=== PATIENT | female | born 1990 | race Caucasian/White ===

== ENCOUNTER → 2020-03-17 | Outpatient (CLI) | payer OTHER ==
[~2020-03-17] MED LIST: BENTYL PO; HYDMOR2 PO; KETO10 PO; OXYACE5T PO; PROM25 PO; RXHYDMOR2 PO; RXONDA4ODT MM; TAMS.4ER PO
== END | disposition home or self-care (01) ==
LOC: LAB 15:53 → LAB SHORT 15:53
PROVIDERS: Obstetrics & Gynecology
DX: O28.8 Other abnormal findings on antenatal screening of mother (principal)
CPT/HCPCS: 87086; 87147; G0123

== ENCOUNTER → 2020-04-18 | Outpatient (CLI) | payer OTHER | LOC: LAB SHORT 16:53 → LAB EV 16:53 | DX: O26.92 Pregnancy related conditions, unspecified, second trimester (principal); R82.90 Unspecified abnormal findings in urine | CPT/HCPCS: 87086 ==

== ENCOUNTER 2020-10-16 08:06 | Inpatient (IN) | payer OTHER ==
[~2020-10-16] VITALS: Ht 157.5 cm; Wt 86.0 kg
[2020-10-16] MEDS ORDERED: PRENATAL TABLE1 EAC2 PO (08:45)
[2020-10-16 08:54] LABS: BASOPHILS ABSOLUTE AUTO 0.04 K/mm3 (0.00-0.23); BASOPHILS PERCENT AUTO 0 % (0-2); EOSINOPHILS ABSOLUTE AUTO 0.13 K/mm3 (0.00-0.68); EOSINOPHILS PERCENT AUTO 1 % (0-6); Hematocrit 38.8 % (33.0-51.0); Hemoglobin 13.3 g/dL (11.5-16.0); IMMATURE GRAN ABSOLUTE AUTO 0.06 K/mm3 (0.00-0.10); IMMATURE GRAN PERCENT AUTO 1 % (0-1); LYMPHOCYTES ABSOLUTE AUTO 2.48 K/mm3 (0.84-5.20); LYMPHOCYTES PERCENT AUTO 25 % (21-46); MONOCYTES PERCENT AUTO 6 % (4-13); Mean Corpuscular HGB 30.3 pg (26.0-34.0); Mean Corpuscular HGB Conc 34.3 g/dL (31.5-36.5); Mean Corpuscular Volume 88 fL (80-100); Mean Platelet Volume 11.5 fL (9.1-12.4); NEUTROPHILS ABSOLUTE AUTO 6.68 K/mm3 (1.96-9.15); NEUTROPHILS PERCENT AUTO 67 % (41-73); Platelet Count 190 K/mm3 (150-400); RDW Coefficient Variation 14.3 % (11.7-14.2); RDW Standard Deviation 46.1 fL (35.1-46.3); Red Blood Cell Count 4.39 M/mm3 (3.80-5.20); White Blood Cell Count 9.99 K/mm3 (4.00-11.30)
[2020-10-17 05:26] LABS: BASOPHILS ABSOLUTE AUTO 0.04 K/mm3 (0.00-0.23); BASOPHILS PERCENT AUTO 0 % (0-2); EOSINOPHILS ABSOLUTE AUTO 0.08 K/mm3 (0.00-0.68); EOSINOPHILS PERCENT AUTO 1 % (0-6); Hematocrit 32.8 % (33.0-51.0); IMMATURE GRAN ABSOLUTE AUTO 0.08 K/mm3 (0.00-0.10); IMMATURE GRAN PERCENT AUTO 1 % (0-1); LYMPHOCYTES ABSOLUTE AUTO 2.76 K/mm3 (0.84-5.20); LYMPHOCYTES PERCENT AUTO 19 % (21-46); MONOCYTES ABSOLUTE AUTO 1.08 K/mm3 (0.16-1.47); MONOCYTES PERCENT AUTO 7 % (4-13); Mean Corpuscular HGB 30.2 pg (26.0-34.0); Mean Corpuscular HGB Conc 33.5 g/dL (31.5-36.5); Mean Corpuscular Volume 90 fL (80-100); Mean Platelet Volume 11.4 fL (9.1-12.4); NEUTROPHILS ABSOLUTE AUTO 10.55 K/mm3 (1.96-9.15); NEUTROPHILS PERCENT AUTO 72 % (41-73); Platelet Count 150 K/mm3 (150-400); RDW Coefficient Variation 14.5 % (11.7-14.2); Red Blood Cell Count 3.64 M/mm3 (3.80-5.20); White Blood Cell Count 14.59 K/mm3 (4.00-11.30)
--- NOTE | 2020-10-17 14:03 | NUR ---
RN/LC ROUNDED TO HELP W/ . INSTRUCT/DEMO WIDENING LATCH, CORRECT POSITIONING, AND NIPPLE SHAPE AFTER FEEDS. PT'S NIPPLE ARE SLIGHTLY ERECT, TISSUE IS FIRM. INSTRUCT/DEMO SHIELD USE AND WEANING. INSTRUCTED PT TO ATTEMPT TO LATCH NB W/O SHIELD W/ EACH FEED, IF NB DOES NOT LATCH TO USE THE SHIELD, IF A MAJORITY OF FEEDS ARE DONE USING A SHIELD, PT IS INSTRUCTED TO PUMP FOR 10-15 MINUTES FOR ADDITIONAL STIMULATION TO HELP BRING IN MILK SUPPLY.
--- NOTE | 2020-10-17 18:24 | NUR ---
LATE NOTE ENTRY: DISCHARGE INSTRUCTIONS, WRITTEN VERNAL, GIVEN TO PT AND Genna ALEXANDER. ANSWERED ALL QUESTIONS AND CONCERNS. FOLLOW UP APPOINTMENT. IV DISCONTINUED. ALL PERSONAL BELONGINGS RETURNED. PT IS DISCHARGED, DRIVEN HOME BY Genna ALEXANDER AT 1740.
--- NOTE | 2020-10-19 09:05 | NUR ---
LATE EDIT COMPLETED IN LABOR AND DELIVERY SUMMARY. NB DETAILS (WT, HT, LENGTH, HEAD, CHEST MEASUREMENTS).
== END 2020-10-17 17:41 | disposition home or self-care (01) | DRG 807 ==
LOC: OBS 08:06 → BC 08:06 → OBS 08:17 → BC 08:18
PROVIDERS: ADMIT Obstetrics & Gynecology
PROC: 10E0XZZ Delivery of Products of Conception, External Approach (ICD-10-PCS; principal; 2020-10-16)
PROC: 0HQ9XZZ Repair Perineum Skin, External Approach (ICD-10-PCS; 2020-10-16)
DX: O70.0 First degree perineal laceration during delivery (principal); Z37.0 Single live birth; Z3A.40 40 weeks gestation of pregnancy; Z20.822 Contact with and (suspected) exposure to COVID-19
CPT/HCPCS: 36415; 51702; 85025; 85460; 86850; 86900; 86901; 96372; A9270; J0290; J1885; J2001; J2210; J2405; J2791; J3010; J7120

== ENCOUNTER 2021-01-27 02:53 | Emergency (ER) | payer OTHER ==
[~2021-01-27] VITALS: Ht 157.5 cm; Wt 86.2 kg
[~2021-01-27 02:53] MED LIST changes: +PRENATAL TABLE1 EAC2 PO
[2021-01-27 03:34] LABS: Source, Urine Clean Catch
[2021-01-27 03:37] LABS: BASOPHILS ABSOLUTE AUTO 0.06 K/mm3 (0.00-0.23); BASOPHILS PERCENT AUTO 1 % (0-2); EOSINOPHILS ABSOLUTE AUTO 0.16 K/mm3 (0.00-0.68); EOSINOPHILS PERCENT AUTO 2 % (0-6); Hematocrit 41.7 % (33.0-51.0); Hemoglobin 13.8 g/dL (11.5-16.0); IMMATURE GRAN ABSOLUTE AUTO 0.05 K/mm3 (0.00-0.10); IMMATURE GRAN PERCENT AUTO 1 % (0-1); LYMPHOCYTES ABSOLUTE AUTO 2.16 K/mm3 (0.84-5.20); LYMPHOCYTES PERCENT AUTO 25 % (21-46); MONOCYTES ABSOLUTE AUTO 0.92 K/mm3 (0.16-1.47); MONOCYTES PERCENT AUTO 11 % (4-13); Mean Corpuscular HGB 28.3 pg (26.0-34.0); Mean Corpuscular HGB Conc 33.1 g/dL (31.5-36.5); Mean Corpuscular Volume 86 fL (80-100); Mean Platelet Volume 10.5 fL (9.1-12.4); NEUTROPHILS ABSOLUTE AUTO 5.17 K/mm3 (1.96-9.15); NEUTROPHILS PERCENT AUTO 61 % (41-73); Platelet Count 247 K/mm3 (150-400); RDW Standard Deviation 39.6 fL (35.1-46.3); Red Blood Cell Count 4.88 M/mm3 (3.80-5.20); White Blood Cell Count 8.52 K/mm3 (4.00-11.30)
[2021-01-27 03:38] LABS: Bilirubin, Urine Neg (Neg); Blood, Urine Neg (Neg); Glucose Qualitative, Urine Neg (Neg); Ketones, Urine Neg (Neg); Leukocyte Esterase, Urine Neg (Neg); Nitrite, Urine Neg (Neg); Protein, Urine 1+ (Neg); Urobilinogen, Urine NORM (Normal)
[2021-01-27] MEDS ORDERED: PROG100 PO (03:40)
[2021-01-27 03:42] LABS: Appearance, Urine Clear (Clear); Color, Urine Yellow (P-Yellow)
[2021-01-27 03:55] LABS: Alanine Aminotransfer (ALT/SGP 34 U/L (12-78); Albumin, Blood 3.5 g/dL (3.4-5.0); Albumin/Globulin Ratio 0.9 (0.8-1.8); Alk Phos 86 U/L (50-136); Anion Gap 4 mmol/L (6-16); Aspartate Aminotrans (AST/SGOT 18 U/L (12-37); Bilirubin, Total 0.4 mg/dL (0.1-1.0); Blood Urea Nitrogen 13 mg/dL (8-24); Bun/Creatinine Ratio 19.4 (12.0-20.0); CO2, Blood 25 mmol/L (21-32); Calcium, Blood 8.6 mg/dL (8.5-10.1); Chloride, Blood 110 mmol/L (98-108); Creatinine, Blood 0.67 mg/dL (0.40-1.00); Glomerular Filtration Rate >60 (60-); Glucose, Blood 110 mg/dL (70-99); Potassium, Blood 3.4 mmol/L (3.5-5.5); Sodium, Blood 139 mmol/L (136-145); Total Protein, Blood 7.5 g/dL (6.4-8.2)
== END 2021-01-27 05:00 | disposition home or self-care (01) ==
LOC: ER 02:53
PROVIDERS: Emergency Medicine
DX: K80.20 Calculus of gallbladder without cholecystitis without obstruction (principal); I10 Essential (primary) hypertension; E11.9 Type 2 diabetes mellitus without complications; K21.9 Gastro-esophageal reflux disease without esophagitis; Z88.0 Allergy status to penicillin; Z88.1 Allergy status to other antibiotic agents
CPT/HCPCS: 76705; 80053; 81025; 83690; 85025; 96374; 96375; 99284-25; J1885; J2405

== ENCOUNTER 2021-02-02 16:45 | Emergency (ER) | payer OTHER ==
[~2021-02-02 16:45] MED LIST changes: +PROG100 PO
== END 2021-02-02 17:21 | disposition left against medical advice (07) ==
LOC: ER 16:45
DX: Z53.21 Procedure and treatment not carried out due to patient leaving prior to being seen by health care provider (principal)

== ENCOUNTER 2021-02-08 13:35 | Day surgery (SDC) | payer OTHER ==
[~2021-02-08] VITALS: Ht 157.5 cm; Wt 86.9 kg
[2021-02-08] MEDS ORDERED: PRENATAL TABLE1 EAC2 (14:16)
--- NOTE | 2021-02-08 16:32 | NUR ---
02/08/21 1632 Katherine Waters PATIENT WAKES UP ENOUGH AND STATES SHE FEELS A LITTLE NAUSEA AND SOME PAIN. SHE FROWNS AND APPEARS UNCOMFORTABLE. ZOFRAN AND FENTANYL GIVEN PER MD ORDER
--- NOTE | 2021-02-08 16:44 | NUR ---
02/08/21 1644 Katherine Waters PATIENT STILL C/O OF NAUSEA AND NOW DEEP BREATHING TO HELP CONTROL. REGLAN WILL BE GIVEN PER MD ORDER
== END 2021-02-08 17:20 | disposition home or self-care (01) ==
LOC: ORSCSDS 13:35
PROVIDERS: Surgery
PROC: BF031ZZ Plain Radiography of Gallbladder and Bile Ducts using Low Osmolar Contrast (ICD-10-PCS; principal; 2021-02-08 14:45)
PROC: 0FT44ZZ Resection of Gallbladder, Percutaneous Endoscopic Approach (ICD-10-PCS; principal; 2021-02-08 14:45)
DX: K80.20 Calculus of gallbladder without cholecystitis without obstruction (principal); K21.9 Gastro-esophageal reflux disease without esophagitis; E66.9 Obesity, unspecified; Z68.35 Body mass index [BMI] 35.0-35.9, adult
CPT/HCPCS: 74300; 88304; A9270; C1729; J0690; J1100; J1885; J2405; J2550; J2704; J2765; J3010; J7040; J7120

== ENCOUNTER 2021-02-18 08:52 | Emergency (ER) | payer OTHER ==
[~2021-02-18] VITALS: Ht 157.5 cm; Wt 86.2 kg
[~2021-02-18 08:52] MED LIST changes: +PRENATAL TABLE1 EAC2
[2021-02-18 11:35] LABS: Calcium, Ionized (POC) 1.11 mmol/L (1.10-1.46); Chloride (POC) 103 mmol/L (98-108); Creatinine (POC) 0.6 mg/dL (0.6-1.0); Glucose (ISTAT POC) 93 mg/dL (70-99); Hemoglobin (POC) 14.3 g/dL (12.0-16.0); Potassium (POC) 3.3 mmol/L (3.5-5.5); Sodium (POC) 139 mmol/L (135-148); Total CO2 (POC) 23 mmol/L (21-32)
[2021-02-18] MEDS ORDERED: PROC25S PR (13:50)
== END 2021-02-18 16:36 | disposition home or self-care (01) ==
LOC: ER 08:52
DX: U07.1 COVID-19 (principal); I10 Essential (primary) hypertension; E11.9 Type 2 diabetes mellitus without complications; Z88.1 Allergy status to other antibiotic agents; Z88.0 Allergy status to penicillin
CPT/HCPCS: 36415; 80047; 85014; 96361; 96374; 96375; 99285-25; A9270; J0780; J1200; J2550; J7030; J7120

== ENCOUNTER 2021-02-20 04:24 | Emergency (ER) | payer OTHER ==
[~2021-02-20] VITALS: Ht 157.5 cm; Wt 65.8 kg
[~2021-02-20 04:24] MED LIST changes: +PROC25S PR
[2021-02-20 05:29] LABS: BASOPHILS ABSOLUTE AUTO 0.01 K/mm3 (0.00-0.23); BASOPHILS PERCENT AUTO 0 % (0-2); EOSINOPHILS PERCENT AUTO 0 % (0-6); Hematocrit 39.6 % (33.0-51.0); Hemoglobin 13.3 g/dL (11.5-16.0); IMMATURE GRAN ABSOLUTE AUTO 0.04 K/mm3 (0.00-0.10); IMMATURE GRAN PERCENT AUTO 1 % (0-1); LYMPHOCYTES ABSOLUTE AUTO 0.58 K/mm3 (0.84-5.20); LYMPHOCYTES PERCENT AUTO 13 % (21-46); MONOCYTES ABSOLUTE AUTO 0.22 K/mm3 (0.16-1.47); MONOCYTES PERCENT AUTO 5 % (4-13); Mean Corpuscular HGB 27.9 pg (26.0-34.0); Mean Corpuscular HGB Conc 33.6 g/dL (31.5-36.5); Mean Corpuscular Volume 83 fL (80-100); Mean Platelet Volume 9.3 fL (9.1-12.4); NEUTROPHILS ABSOLUTE AUTO 3.73 K/mm3 (1.96-9.15); NEUTROPHILS PERCENT AUTO 81 % (41-73); Platelet Count 193 K/mm3 (150-400); RDW Coefficient Variation 13.2 % (11.7-14.2); RDW Standard Deviation 40.7 fL (35.1-46.3); Red Blood Cell Count 4.77 M/mm3 (3.80-5.20); White Blood Cell Count 4.58 K/mm3 (4.00-11.30)
[2021-02-20 05:48] LABS: Alanine Aminotransfer (ALT/SGP 76 U/L (12-78); Albumin/Globulin Ratio 0.8 (0.8-1.8); Alk Phos 94 U/L (50-136); Anion Gap 11 mmol/L (6-16); Aspartate Aminotrans (AST/SGOT 56 U/L (12-37); Blood Urea Nitrogen 9 mg/dL (8-24); Bun/Creatinine Ratio 15.7 (12.0-20.0); CO2, Blood 21 mmol/L (21-32); Calcium, Blood 8.5 mg/dL (8.5-10.1); Chloride, Blood 108 mmol/L (98-108); Creatinine, Blood 0.57 mg/dL (0.40-1.00); Globulin, Blood 3.9 g/dL (2.2-4.0); Glomerular Filtration Rate >60 (60-); Glucose, Blood 102 mg/dL (70-99); Sodium, Blood 140 mmol/L (136-145); Total Protein, Blood 6.9 g/dL (6.4-8.2)
[2021-02-20] MEDS ORDERED: Dexamethasone4 MG PO (06:28)
== END 2021-02-20 09:49 | disposition home or self-care (01) ==
LOC: ER 04:24
PROVIDERS: Emergency Medicine
DX: U07.1 COVID-19 (principal); E87.6 Hypokalemia; Z88.0 Allergy status to penicillin; Z88.1 Allergy status to other antibiotic agents
CPT/HCPCS: 36415; 71045; 80053; 85025; 86140; 96374; 99285-25; A9270; J1100

== ENCOUNTER 2021-02-21 21:35 | Inpatient (IN) | payer OTHER ==
[~2021-02-21] VITALS: Ht 167.6 cm; Wt 81.0 kg
[~2021-02-21 21:35] MED LIST changes: +Dexamethasone4 MG PO
[2021-02-21 22:51] LABS: BASOPHILS ABSOLUTE AUTO 0.01 K/mm3 (0.00-0.23); BASOPHILS PERCENT AUTO 0 % (0-2); EOSINOPHILS PERCENT AUTO 0 % (0-6); Hematocrit 34.3 % (33.0-51.0); Hemoglobin 11.7 g/dL (11.5-16.0); Mean Corpuscular HGB 27.9 pg (26.0-34.0); Mean Corpuscular HGB Conc 34.1 g/dL (31.5-36.5); Mean Corpuscular Volume 82 fL (80-100); Mean Platelet Volume 8.9 fL (9.1-12.4); Platelet Count 294 K/mm3 (150-400); RDW Coefficient Variation 13.2 % (11.7-14.2); RDW Standard Deviation 39.3 fL (35.1-46.3); Red Blood Cell Count 4.19 M/mm3 (3.80-5.20); White Blood Cell Count 6.33 K/mm3 (4.00-11.30)
[2021-02-21 22:52] LABS: IMMATURE GRAN ABSOLUTE AUTO 0.05 K/mm3 (0.00-0.10); IMMATURE GRAN PERCENT AUTO 1 % (0-1); LYMPHOCYTES ABSOLUTE AUTO 0.76 K/mm3 (0.84-5.20); LYMPHOCYTES PERCENT AUTO 12 % (21-46); MONOCYTES ABSOLUTE AUTO 0.59 K/mm3 (0.16-1.47); MONOCYTES PERCENT AUTO 9 % (4-13); NEUTROPHILS ABSOLUTE AUTO 4.92 K/mm3 (1.96-9.15); NEUTROPHILS PERCENT AUTO 78 % (41-73)
[2021-02-21 23:11] LABS: Alanine Aminotransfer (ALT/SGP 82 U/L (12-78); Albumin, Blood 2.5 g/dL (3.4-5.0); Albumin/Globulin Ratio 0.7 (0.8-1.8); Alk Phos 78 U/L (50-136); Anion Gap 8 mmol/L (6-16); Aspartate Aminotrans (AST/SGOT 57 U/L (12-37); Bilirubin, Total 0.6 mg/dL (0.1-1.0); Blood Urea Nitrogen 13 mg/dL (8-24); CO2, Blood 20 mmol/L (21-32); Chloride, Blood 116 mmol/L (98-108); Creatinine, Blood 0.48 mg/dL (0.40-1.00); Globulin, Blood 3.5 g/dL (2.2-4.0); Glomerular Filtration Rate >60 (60-); Glucose, Blood 108 mg/dL (70-99); Potassium, Blood 3.1 mmol/L (3.5-5.5); Sodium, Blood 144 mmol/L (136-145); Troponin I <0.015 ng/mL (0.000-0.040)
[2021-02-22 08:54] LABS: Anion Gap 9 mmol/L (6-16); Blood Urea Nitrogen 18 mg/dL (8-24); Bun/Creatinine Ratio 27.9 (12.0-20.0); CO2, Blood 24 mmol/L (21-32); Calcium, Blood 8.6 mg/dL (8.5-10.1); Chloride, Blood 107 mmol/L (98-108); Creatinine, Blood 0.65 mg/dL (0.40-1.00); Glomerular Filtration Rate >60 (60-); Glucose, Blood 131 mg/dL (70-99); Potassium, Blood 3.1 mmol/L (3.5-5.5); Sodium, Blood 140 mmol/L (136-145)
--- NOTE | 2021-02-22 14:37 | NUR ---
PT ADMIT TO PCU. USED SLIDE SHEET TO TRANSFER. ALERT AND ORIENTED X4. NEURO WNL. PUPILS EQUAL, ROUND, AND REACTIVE. DENIES NUMBNESS AND TINGLING. ON 10L OXYMIZER SATING HIGH 90'S. WILL TITRATE ABLE. PT DESCRIBES SOB WITH MOVMENT AND TALKING. PT ALSO DESCRIBES FEELING ANXIOUS AND HAVING A PANIC ATTACK IN ER WHEN BIPAP WAS APPLIED. DRY COUGH AT THIS TIME. LUNGS SOUNDING COARSE AND DIM IN BASES. TELE SHOWING SINUS WITH HR 90'S. RADHA CHEST PAIN/PRESSURE. BOWEL TONES HEARD. CAUSEY CATH IN PLACE DRAINING CLEAR/YELLOW URINE TO GRAVITY. POST OP 2 WEEKS FROM GALLBLADDER REMOVAL. LAPRASCOPIC INCISION JIMENEZ ON ABDOMEN HEALING WNL. DENIES NAUSEA/ABDOMINAL PAIN. PERIPHERAL PULSES STRONG. ORIENTED TO UNIT AND ROOM. CALL LIGHT IN REACH. ADMISSION HISTORY COMPLETE. CALL PLACED TO STEVE ALEXANDER, MESSAGE LEFT. WILL CONTINUE TO MONITOR.
--- NOTE | 2021-02-22 18:32 | NUR ---
SHIFT SUMMARY: NO ACUTE CHANGES. PATIENT REMAINS ON 10L OXYMIZER SATING MID-HIGH 90'S. VITAL SIGNS STABLE. TELE REMAINS UNCHANGED. DENIES PAIN. LOW APPETITE. CALL LIGHT IN REACH. SEE PREVIOUS NOTE. WILL CONTINUE TO MONITOR AND REPORT OFF TO ONCOMING RN.
--- NOTE | 2021-02-22 20:20 | NUR ---
PATIENT REPORTING ANXIETY AND CAUSING HER TO BE UNABLE TO REST. MEDICATED WITH PRN 0.5MG ATIVAN. UPON REASSESSMENT PATIENT REPORTS RELIEF AND THE ABILITY TO REST. WILL CONTINUE TO MONITOR.
--- NOTE | 2021-02-22 21:10 | NUR ---
PT IS A&O X 4, PT IS WEAK, DENIES ANY PAIN. CRACKLES AUSCULTATED IN THE BILATERAL UPPER LOBES, WITH DIMINISHED LUNG BASES, NON-PRODUCTIVE COUGH. URINARY CATHETER DRAINING CLEAR/YELLOW URINE, ABDOMINAL LAPAROSCOPY SITES CLOSED WITH SURGICAL GLUE AND WNL. PATIENT EXPRESSES INABILITY TO SLEEP, AND FEELING FATIGUED. CALL LIGHT WITHIN REACH, BED IN LOWEST POSITION.
--- NOTE | 2021-02-22 23:22 | NUR ---
PATIENT WAS SHIVERING AND SWEATING. TEMP SHOWED 98.3 AND 98.5 UPON CHECKING THE SECOND TIME. ATTEMPTED TO PRONE PATIENT, BUT PATIENT BEGAN HAVING PANIC ATTACK. SETTLED FOR LAYING ON HER LEFT SIDE. PATIENT DESATS TO 85% WITH EACH COUGHING EPISODE AND WHENEVER MOVING (CHANGING POSITIONS ETC...), RECOVERS WITHIN 5 MINUTES TO 94%. WILL CONTINUE TO MONITOR.
--- NOTE | 2021-02-23 00:48 | NUR ---
PTS BP 103/59, BP HAS BEEN TRENDING DOWN. URINE OUTPUT IS -900. CONTACTED PHYSICIAN AND 250ML NS BOLUS ORDERED. WILL CONTINUE TO MONITOR.
--- NOTE | 2021-02-23 00:51 | NUR ---
PATIENT WAS VERY ANXIOUS AND NAUSEOUS. UNABLE TO SLEEP D/T THIS. MEDICATED WITH PRN ATIVAN 0.5MG AND PRN ZOFRAN. ON REASSESSMENT, PATIENT IS SLEEPING.
--- NOTE | 2021-02-23 05:29 | NUR ---
PATIENT REMAINS ON 10L OXYMIZER AND SATS LOW-MID 90'S. BP HAS INCREASED SINCE SINCE BOLUS. PATIENT DENIES ANY PAIN, BUT DOES CONTINUE TO HAVE PERIODS OF PANIC. PATIENT HAS THE GOAL OF PRONING TODAY, WHICH WILL BE PASSED ONTO THE DAY SHIFT. SEE PREVIOUS NOTES. CALL LIGHT REMAINS WITHIN REACH AND BED IN LOW POSITION.
--- NOTE | 2021-02-23 12:29 | NUR ---
PT ALERT AND ORIENTED X4. NEURO WNL. TELE SHOWING SINUS WITH HR 70-80'S. DENIES CHEST PAIN/PRESSURE. VITAL SIGNS STABLE. ON 10L OXYMIZER SATING MID-HIGH 90'S. DESATS WITH MOVEMENT AND TALKING. DRY COUGH WHEN EATING AND TALKING. PATIENT ANXIOUS TO PRONE. PRONING ENCOURAGED. PLAN TO PRONE AFTER LUNCH. LUNGS SOUDING COARSE AND DIM IN BASES. BOWEL TONES PRESENT. CAUSEY CATH IN PLACE DRAINING CLEAR/YELLOW URINE. DENIES NAUSEA/ABDOMINAL PAIN. POST OP 2-3WEEKS FROM GALL BLADDER REMOVAL. LAPROSCOPIC INCISIONS HEALING WELL. LOW APPETITE. DENIES NEEDS AT THIS TIME. CALL LIGHT IN REACH.
--- NOTE | 2021-02-23 12:39 | NUR ---
Spiritual care referral: Moon given to pt from co-workers. Pt appeared somewhat quiet, but began conversing more as rapport was built. Pt provided space to reflect on her life, ld, and family. Empathic listening extended as pt explains having to suspend upcoming wedding for a time. Provided words of encouragement and a supplication according to pt's belief system. She verbalized gratitude for the visit.
--- NOTE | 2021-02-23 14:18 | NUR ---
PATIENT PRONING AT THIS TIME. PATIENT EXPRESSES ANXIETY WITH PRONING. ATIVAN GIVEN PER EMAR. DIFFERENT POSITIONS SHOWN. PATIENT PRONING ON 10L OXYMIZER. SATING MID-HIGH 90'S. CALL LIGHT IN REACH.
--- NOTE | 2021-02-23 17:40 | NUR ---
SHIFT SUMMARY: NO ACUTE CHANGES. PATIENT REMAINS STABLE. SEE PREVIOUS NOTE. NO CHANGES TO TELE. REMAINS ON 10L OXYMIZER SATING MID 90'S. ATTEMPTED TO TITRATE DOWN TO 9L THIS AFTERNOON, PATIENT WAS SATING AT 90%, OXYMIZER TURNED BACK UP TO 10L. PATIENT ABLE TO PRONE ON AND OFF THIS AFTERNOON. PRONE POSITIONS TAUGHT AND ATIVAN GIVEN PRIOR TO INTIAL PRONING. PATIENT STATES SHE IS MORE COMFORTABLE WITH PRONING NOW. THROUGHOUT DAY COUGH HAS CONTINUED BUT PATIENT REPORTS MORE SPUTUM THIS EVENING. EATING WELL AND DRINKING FLUIDS. IV SALINE LOCKED IN RIGHT AC. PATIENT STATES SHE WILL PRONE AGAIN TONIGHT. UPDATED MOM MICHELA THROUGHOUT DAY. WILL CONTINUE TO MONITOR AND REPORT OFF.
[2021-02-24 04:20] LABS: Anion Gap 6 mmol/L (6-16); Blood Urea Nitrogen 21 mg/dL (8-24); Bun/Creatinine Ratio 34.8 (12.0-20.0); CO2, Blood 26 mmol/L (21-32); Calcium, Blood 8.6 mg/dL (8.5-10.1); Chloride, Blood 107 mmol/L (98-108); Glomerular Filtration Rate >60 (60-); Glucose, Blood 115 mg/dL (70-99); Potassium, Blood 3.4 mmol/L (3.5-5.5); Sodium, Blood 139 mmol/L (136-145)
--- NOTE | 2021-02-24 06:48 | NUR ---
SHIFT SUMMARY PT RESTED WELL THROUGH THE NIGHT. ALERT AND ORIENTED, ABLE TO MAKE NEEDS KNOWN. COOPERATIVE WITH CARE. SATS >90% - WEANED O2 DOWN FROM 10L TO 7L ON OXYMIZER. TELE NSR/ST. NO C/O PAIN. DOES PRONE, BUT IS ALSO VERY ANXIOUS ABOUT CONDITION. ENCOURAGEMENT AND REMINDING HER SHE IS IMPROVING IS HELPING. ATIVAN X1. CAUSEY IN PLACE, DRAINING TO GRAVITY, PERCY CARE PERFORMED. NO C/O PAIN. CALL LIGHT WTIHIN REACH, BED IN LOWEST POSITION. WILL CONTINUE TO MONITOR.
--- NOTE | 2021-02-24 12:15 | NUR ---
CAUSEY CATHETER REMOVED PER MD ORDERS W/O DIFFICULTY. PT VERBALIZES UNDERSTANDING TO CALL STAFF WHEN SHENEEDS TO GET OOB TO USE THE COMMODE. PT 1 PERSON ASSIST TO CHAIR AT BEDSIDE. ENCOURAGED PT TO BE OOB FOR ALL MEALS AND TURNING/PRONING THROUGHOUT THE DAY. PT VERBALIZES UNDERSTANDING, CALL LIGHT IN REACH, TELEMETRY/OXYGEN MONITOR IN PLACE.
--- NOTE | 2021-02-24 17:22 | NUR ---
SHIFT SUMMARY PATIENT TO THE FLOOR FROM PCU MID AFTERNOON. PATIENT ALERT AND ORIENTED THIS SHIFT. PATIENT IS INDEPENDENT IN THE ROOM. PATIENT REMAINS ON 7L O2 TO MAINTAIN O2 SAT > 90. PATIENT ORIENTED TO THE ROOM AND MADE COMFORTABLE. NO ADDITIONAL NEED THIS SHIFT. PATIENT CURRENTLY SITTING UP IN BED WATCHING TELEVISION.
[2021-02-25 06:08] LABS: Anion Gap 9 mmol/L (6-16); Blood Urea Nitrogen 18 mg/dL (8-24); Bun/Creatinine Ratio 32.3 (12.0-20.0); CO2, Blood 23 mmol/L (21-32); Calcium, Blood 8.4 mg/dL (8.5-10.1); Chloride, Blood 106 mmol/L (98-108); Creatinine, Blood 0.56 mg/dL (0.40-1.00); Glomerular Filtration Rate >60 (60-); Glucose, Blood 110 mg/dL (70-99); Potassium, Blood 3.7 mmol/L (3.5-5.5); Sodium, Blood 138 mmol/L (136-145)
--- NOTE | 2021-02-25 09:56 | NUR ---
HOME OXYGEN STUDY 92% ON ROOM AIR AT REST. WHILE AMBULATING ON ROOM AIR, SATS DROPPED TO 89%. 1L OF OXYGEN REQUIRED TO MAINTAIN SATURATIONS 90% WHILE AMBULATING.
[2021-02-25] MEDS ORDERED: Acetaminophen650 M1 PO (12:51)
[2021-02-25] MEDS ORDERED: Ativan1 MG PO (12:52)
[2021-02-25] MEDS ORDERED: CODEINE-GUAIFE120 M1 PO (12:53)
--- NOTE | 2021-02-25 15:30 | NUR ---
DISCHARGED HOME. ALL QUESTIONS ANSWERED. HARD SCRPTS FOR CONTROLLED SUBSTANCES SENT WITH PATIENT, AND ALL PERSONAL BELONGINGS.
== END 2021-02-25 15:23 | disposition home or self-care (01) | DRG 177 ==
LOC: ER 21:35 → ERHOLD 02-22 00:45 → PCU 02-22 13:41 → MEDS 02-24 16:05
PROVIDERS: Emergency Medicine; Internal Medicine; ADMIT Internal Medicine
PROC: XW033E5 Introduction of Remdesivir Anti-infective into Peripheral Vein, Percutaneous Approach, New Technology Group 5 (ICD-10-PCS; principal; 2021-02-22)
PROC: 3E0333Z Introduction of Anti-inflammatory into Peripheral Vein, Percutaneous Approach (ICD-10-PCS; 2021-02-22)
PROC: 5A09357 Assistance with Respiratory Ventilation, Less than 24 Consecutive Hours, Continuous Positive Airway Pressure (ICD-10-PCS; 2021-02-22)
DX: U07.1 COVID-19 (principal); J96.01 Acute respiratory failure with hypoxia; J12.82 Pneumonia due to coronavirus disease 2019; E66.9 Obesity, unspecified; F41.9 Anxiety disorder, unspecified; E87.6 Hypokalemia; Z88.1 Allergy status to other antibiotic agents; Z68.30 Body mass index [BMI] 30.0-30.9, adult
CPT/HCPCS: 36415; 51702; 71045; 71260; 80048; 80053; 84484; 85025; 85379; 93005; 93010; 94660; 94761; 94762; 96365; 96372; 96375; 96376; 99285-25; A9270; C9113; J1100; J1650; J1940; J2060; J2405; J3480; J7050; Q9967

== ENCOUNTER → 2022-04-09 | Outpatient (CLI) | payer BC ==
[~2022-04-09] MED LIST changes: +Acetaminophen650 M1 PO; +Ativan1 MG PO; +CODEINE-GUAIFE120 M1 PO
[2022-04-11 02:09] LABS: CHLAMYDIA TRACHOMATIS, NAA Negative (Negative)
== END | disposition home or self-care (01) ==
LOC: LAB SHORT 17:39 → LAB 17:39
PROVIDERS: Obstetrics & Gynecology
DX: Z34.81 Encounter for supervision of other normal pregnancy, first trimester (principal)
CPT/HCPCS: 87491; 87591